=== PATIENT | male | born 1985 | race Caucasian/White ===

== ENCOUNTER → 2016-05-08 | Outpatient (CLI) | payer BC, OTHER ==
--- NOTE | 2016-05-08 16:43 | US ---
Ultrasound Venous Duplex/Doppler left Leg History: Pain and swelling. Post surgery. Findings: Ultrasound venous duplex and Doppler imaging of the common femoral vein, femoral vein, pop liteal vein, calf veins, greater saphenous vein origin, and contralateral common femoral vein demonst rates normal compressibility, color flow, and Doppler flow without deep venous thrombosis. Left popliteal fossa Diop's cyst measuring 4.4 x 1.5 x 1.1 cm. Left upper calf fluid collection shorty uring 3.7 x 3.4 x 0.8 cm which may represent ruptured Diop's cyst or postsurgical collection. Impression: No deep venous thrombosis left leg. Findings and recommendations discussed with MEHRDAD Schmidt at 16:41 hour, 05/08/2016. Final report concurs with initial preliminary interpretation.
== END ==
LOC: FIMAGING 15:47
PROVIDERS: ATTEND Physician Assistant
DX: M71.22 Synovial cyst of popliteal space [Baker], left knee (principal); M79.662 Pain in left lower leg